=== PATIENT | female | born 1960 | race Caucasian/White ===

== ENCOUNTER → 2019-10-27 | Day surgery (SDC) | payer OTHER ==
[2019-10-22 15:57] LABS: BASOPHILS % 0.6 % (0.0-1.0); EOSINOPHILS # (AUTO) 0.5 (0.0-0.4); HEMATOCRIT 39.4 % (34.2-44.1); HEMOGLOBIN 12.4 g/dL (12.0-16.0); LYMPHOCYTES # (AUTO) 1.3 (1.0-3.2); LYMPHOCYTES % 20.6 % (18.0-39.1); MEAN CORPUSCULAR HEMOGLOBIN 29.1 pg (28-32); MEAN CORPUSCULAR HGB CONC 31.5 g/dL (31-35); MEAN CORPUSCULAR VOLUME 92.5 fL (81-99); MONOCYTES # (AUTO) 0.6 (0.2-0.8); MONOCYTES % 9.3 % (4.4-11.3); NEUTROPHILS % 62.3 % (38.7-80.0); PLATELET COUNT 179 x10e3/uL (140-360); RED BLOOD COUNT 4.26 x10e6/uL (3.6-5.1); RED CELL DISTRIBUTION WIDTH 15.4 % (11.7-14.4)
[2019-10-22 16:18] LABS: ALANINE AMINOTRANSFERASE 12 IU/L (0-55); ALBUMIN 3.3 g/dL (3.5-5.0); ALBUMIN/GLOBULIN RATIO 0.9 (0.8-2.0); ALKALINE PHOSPHATASE 100 IU/L (40-150); ANION GAP 9.8 mmol/L (8-16); BLOOD UREA NITROGEN 20 mg/dL (7-26); BUN/CREATININE RATIO 23 (6-25); CALCIUM 9.2 mg/dL (8.4-10.2); CARBON DIOXIDE 30 mmol/L (22-29); CHLORIDE 108 mmol/L (98-107); CREATININE, SERUM 0.88 mg/dL (0.57-1.11); EST GLOMERULAR FILTRATION RATE > 60 ML/MIN (60-); GLUCOSE 113 mg/dL (74-118); POTASSIUM 3.8 mmol/L (3.5-5.1); SODIUM 144 mmol/L (136-145)
[2019-10-27] VITALS (8 sets, daily range): BP systolic 113–144; BP diastolic 64–88
[~2019-10-27] VITALS: Ht 160 cm; Wt 133.8 kg
[~2019-10-27] MED LIST: ALPRAZOLAM 0.5 MG TAB ONE; DIPHENHYDRAMINE HCL 25 MG CAP ONE; FENTANYL CITRATE/PF 100MCG/2 ML INJ ONE; HEPARIN SOD (PORCINE) 1000 UNIT/ML 30ML ONE; HEPARIN SOD/SOD CHLORIDE 2,000 ML ONE; IOPAMIDOL 300MG/ML 100 ML INFUS..BTL IV ONE; LIDOCAINE HCL 2% LOCAL 20 ML VIAL ONE; MIDAZOLAM HCL 2 MG/2 ML VIAL ONE; NITROGLYCERIN/D5W 200 MCG/ML 250 ML ONE; SODIUM CHLORIDE 0.9% 1000ML 1,000 ML ONE; VERAPAMIL HCL 2.5 MG/ML 2 ML VIAL ONE
--- OUTSIDE RECORDS SUMMARY | 2019-10-27 08:19 | XMS REPORT ---
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 Allergies, Adverse Reactions, Alerts This patient has no known allergies or adverse reactions. Medications This patient has no known medications. Encounters Start Date/Time End Date/Time Encounter Type Admission Type Attending [facility] Facility Care Department Encounter ID 2019-03-31 16:09:04 Outpatient [facility] [id number] 2018-11-12 10:35:45 Outpatient [facility] [id number] 2019-03-17 14:01:00 2019-03-17 14:01:00 Outpatient [facility] CAR [id number] 2019-03-03 13:44:00 2019-03-03 13:44:00 Outpatient [facility] CAR [id number] 2019-02-23 08:00:00 2019-02-23 08:00:00 Outpatient [facility]SE [id number]
--- NOTE | 2019-10-27 14:09 | NUR ---
1409pReceived pt to room #9 ,Identiferx2.bedside report received from HERRERA Coyle. Alert oriented and appropriate, PERRLA, respirations even and unlabored to room air. Pulses x4 extremities equal and strong. Pedal pulses PT/DP X2 palpable No access PTx2x2 Dressings remain in place. and marked. Cap fill brisk < 3 sec. Rt Tr band approach Diagnostic only. TR band ok down at 1500pm and dc home approx 1530pm.No gross issues pain,pallor,pressure or dysrhythmia. Skin warm and dry integrity appears D/I. IV 20g to left hand, presents healthy w/o s/s of infiltration or complaint. Abdomen soft and supple. pt offered toileting, denies need to urinate or defecate. No personal affects with patient. Family mother at bedside calling for ride. Pt and family verbalizes understanding of POC. Currently w/o complaint of pain or need.ds/rn
--- NOTE | 2019-10-27 15:00 | NUR ---
1500p RADIAL Compression removal: Initial Cuff volume 12 cc 1500p -2cc Removed No hematoma/bleeding noted with normal neurovascular function. 1515p -5 cc Removed No hematoma/ bleeding noted with normal neurovascular function. 1530cc -5cc Removed No hematoma/bleeding noted with normal neurovascular function. c Air removal completed. Stasis achieved sterile 2x2,Tegaderm, Coban dressing No hematoma, bleeding noted with normal neurovascular function. Wrist splint in place. Pt instructed on POC. Ds/Rn
--- NOTE | 2019-10-27 15:45 | NUR ---
1545p Pt meets DC criteria. Rt Tr band assessed for s/s of complication and presence of hematoma. Skin warm, dry, no discolor, and pulses present DP only Po tib unable to access due to wraps in place. IV removed from left hand. Distal tip appears intact. VS WNL. Pt denies pain, sob, or need at this time. Family at curbside. Review of discharge paperwork and follow up instructions. verbalized understanding. Pt to wheelchair and transported to front of hospital. Transferred to private vehicle under own strength w/o incident with DC paperwork in hand. - ds/rn
--- NOTE | 2019-10-27 20:07 | Operative Report ---
DATE OF PROCEDURE: 10/27/2019 SURGEON: Nato Morocho MD INDICATION: Peripheral arterial disease, ulceration and claudication of left lower extremity with critical limb ischemia, [place] 6. PROCEDURES PERFORMED: 1. Ultrasound-guided access in the right radial artery with sheath placement and image storage. 2. Conscious sedation and administration. Hemodynamic and neurological monitoring and recovery by union laborer RN and supervision by MD for 35 minutes. 3. Abdominal aorta catheter placement abdominal aortogram. 4. Third order catheter placed in the right radial artery to the left femoral artery with unilateral extremity angiogram. 5. Deployment of right wrist TR band. COMPLICATIONS: None. RECOMMENDATIONS: Medical therapy assessment for deep and superficial venous disease. DESCRIPTION OF PROCEDURE: Access obtained in the right radial artery using ultrasound guidance. A 6-[place] sheath was placed. Abdominal aortogram demonstrated widely patent abdominal aorta and iliacs bilaterally. Catheter was then extended from the right radial artery to the left femoral artery. No evidence of angiographic peripheral arterial disease. A 20% to 30% stenosis of the proximal left anterior tibial artery with three-vessel runoff to the foot. No intervention deemed necessary. Wire and guide were removed. TR band applied. The patient discharged to home same day. Nato Morocho MD KSB/MODL /[id number]
== END | disposition home or self-care (01) ==
LOC: CATH LAB 08:13
PROVIDERS: ATTEND Internal Medicine Interventional Cardiology
DX: I70.249 Atherosclerosis of native arteries of left leg with ulceration of unspecified site (principal); L97.929 Non-pressure chronic ulcer of unspecified part of left lower leg with unspecified severity; I10 Essential (primary) hypertension; I48.0 Paroxysmal atrial fibrillation; I87.2 Venous insufficiency (chronic) (peripheral); R00.0 Tachycardia, unspecified; Z01.812 Encounter for preprocedural laboratory examination; Z79.02 Long term (current) use of antithrombotics/antiplatelets; Z68.43 Body mass index [BMI] 50.0-59.9, adult
CPT/HCPCS: 36247; 36415; 75625; 75710; 76937 ×2; 80053; 85025; C1769 ×2; C1887; J1644; J2001; J7030; Q9967; 99152; 99153; J2250; J3010